=== PATIENT | female | born 1990 | race Caucasian/White ===

== ENCOUNTER 2021-01-28 10:32 | Emergency (ER) | payer BC, MEDICAID, SELFPAY ==
[2021-01-28 10:49] VITALS: BP 147/87; PULSE 99; RESP 16; TEMP 36.9; O2SAT 99
[2021-01-28 11:42] VITALS: BP 102/86; BP 122/81; BP 123/83; PULSE 88; PULSE 93; PULSE 99
[2021-01-28 11:44] LABS: Basophils Absolute Auto 0.1 K/mm3 (0.0-0.1); Basophils Percent Auto 0.5 % (0.2-1.2); Eosinophils Absolute Auto 0.1 K/mm3 (0-0.3); Eosinophils Percent Auto 1.4 % (0-4.4); Hematocrit 37.3 % (37.0-47.0); Hemoglobin 11.8 g/dL (12.0-15.0); Immature Granulocyte Absolute 0.05 K/mm3 (0.00-0.031); Immature Granulocyte Percent A 0.5 % (0-0.5); Lymphocytes Absolute Auto 2.01 K/mm3 (0.9-3.2); Lymphocytes Percent Auto 20.9 % (18.3-44.2); Mean Corpuscular HGB Conc 31.6 g/dl (32-36); Mean Corpuscular Hemoglobin 25.4 pg (26-34); Mean Corpuscular Volume 80.2 fl (80-100); Mean Platelet Volume 9.1 fl (7.4-10.4); Monocytes Absolute Auto 0.4 K/mm3 (0.1-0.6); Neutrophils Percent Auto 72.7 % (45.5-73.1); Platelet Count Result 213 k/mm3 (150-375); Red Blood Count 4.65 M/mm3 (4.2-5.4); Red Cell Distribution Width 14.6 % (11.5-14.5); White Blood Count 9.6 K/mm3 (4.5-10.0)
[2021-01-28 11:49] LABS: Add Urine Microscopic? YES; Appearance Urine Clear (Clear); Bacteria Urine Trace /hpf; Bilirubin Urine Negative (Negative); Blood Urine Negative (Negative); Color Urine Straw (Yellow); Glucose Urine UA Negative (Negative); Ketones Urine Negative (Negative); Leukocyte Esterase Ur Trace LEU/UL (Negative); Mucus Urine Rare /lpf; Nitrate Urine Negative (Negative); Protein Urine Negative (Negative); RBC Urine 0-2 /hpf (0-2); Specific Grav Ur 1.008 (1.001-1.035); Squamous Epithelial Cell Urine Few /hpf (Few); Urobilinogen Urine Negative mg/dL (<2.0); WBC Urine 0-3 /hpf
[2021-01-28 11:56] LABS: Alanine Aminotransferase 9 U/L (4-35); Albumin Level 3.5 g/dL (3.5-5.1); Alkaline Phosphatase 102 U/L (38-126); Anion Gap 7 mmol/L (8-16); Aspartate Amino Transferase 14 U/L (14-36); Bilirubin,Total 0.2 mg/dL (0.2-1.3); Blood Urea Nitrogen 8 mg/dL (7-17); Calcium 9.3 mg/dL (8.4-10.2); Carbon Dioxide 20 mmol/L (22-30); Chloride 106 mmol/L (98-107); Estimated CRCL calculation 127 ml/min; Estimated Glomerular Filt Rate > 60; Glucose 73 mg/dL (65-110); Lipase 101 U/L (23-300); Potassium 4.2 mmol/L (3.4-5.0); Sodium 133 mmol/L (137-145)
[2021-01-28] MEDS: ONDANSETRON INJ 4 MG/2 ML VIAL IV PUSH (13:30)
[2021-01-28] MEDS: SODIUM CHLORIDE 0.9% IV 1,000 ML 999 ML IV CONT (13:30)
--- NOTE | 2021-01-28 13:59 | ED.GENADULT ---
HPI - General Adult General Chief complaint: Dizziness Stated complaint: I think I need fluids - dizzy Time Seen by Provider: 01/28/21 11:59 History of Present Illness HPI narrative: Patient is a 30-year-old female who presents ER with lightheadedness. Reports has been nauseated for several days and has not been eating well. This is causing her to get lightheaded when she goes from sitting to standing. No syncope. No urinary frequency urgency or dysuria. No leakage of fluid or vaginal bleeding. She is feeling her baby move. She is 27 weeks of gestation. She sees Dr. Forman. Related Data Allergies Allergy/AdvReac Type Severity Reaction Status Date / Time No Known Allergies Allergy Verified 01/28/21 11:44 Review of Systems Review of Systems: All systems reviewed & are unremarkable except as noted in HPI and below Constitutional: Constitutional: Denies chills, Reports fatigue and Denies fever(s) ENT: Denies nasal congestion and Denies sore throat Gastrointestinal: Gastrointestinal: Denies abdominal pain, Denies diarrhea, Reports nausea and Denies vomiting Genitourinary: Genitourinary: Denies nocturia, Denies dysuria and Denies flank pain Musculoskeletal: Musculoskeletal: Denies back pain and Denies muscle cramps PMFSH Past Medical History Medical History (Updated 01/28/21 @ 14:53 by Chapo Stacy MD) Healthy female adult Surgical History Surgical History (Updated 01/28/21 @ 14:49 by Chapo Stacy MD) No history of previous surgery Social History Social History (Updated 01/28/21 @ 14:49 by Chapo Stacy MD) Smoking status: Never smoker Gender identity (if verbalized by the patient): Female Exam Narrative: GENERAL: Well-appearing, well-nourished, and in no acute distress. HEAD: Normocephalic, atraumatic. EYES: PERRL and EOMI. ENT: Mucous membranes moist. CHEST: Clear to auscultation. No respiratory distress. HEART: Regular rate and rhythm. Normal peripheral pulses. ABDOMEN: Soft, nontender, nondistended, uterus palpated above the umbilicus. EXTREMITIES: Normal range of motion. No edema. SKIN: Warm, dry, no rash. NEURO: Alert and oriented x3. Course Course Emergency Course: Positive heart tones. Patient given fluids and antiemetics. Discharge home with Nell. Follow-up with her OB. Vital Signs Vital signs: Vital Signs Temperature 98.4 F 01/28/21 10:49 Pulse Rate 99 01/28/21 10:49 Respiratory Rate 16 01/28/21 10:49 Blood Pressure 147/87 H 01/28/21 10:49 Pulse Oximetry 99 01/28/21 10:49 Temperature 98.4 F 01/28/21 10:49 Pulse Rate 68 01/28/21 14:16 Respiratory Rate 18 01/28/21 14:16 Blood Pressure 106/68 01/28/21 14:16 Pulse Oximetry 100 01/28/21 14:16 Medical Decision Making Vital Signs Vital Signs: Vital Signs Temperature 98.4 F 01/28/21 10:49 Pulse Rate 99 01/28/21 10:49 Respiratory Rate 16 01/28/21 10:49 Blood Pressure 147/87 H 01/28/21 10:49 Pulse Oximetry 99 01/28/21 10:49 Temperature 98.4 F 01/28/21 10:49 Pulse Rate 68 01/28/21 14:16 Respiratory Rate 18 01/28/21 14:16 Blood Pressure 106/68 01/28/21 14:16 Pulse Oximetry 100 01/28/21 14:16 Lab Data Result diagrams: 01/28/21 11:38 01/28/21 11:38 Labs: Lab Results 01/28/21 01/28/21 01/28/21 Range/Units 11:38 11:38 11:38 WBC 9.6 (4.5-10.0) K/mm3 RBC 4.65 (4.2-5.4) M/mm3 Hgb 11.8 L (12.0-15.0) g/dL Hct 37.3 (37.0-47.0) % MCV 80.2 (80-100) fl MCH 25.4 L (26-34) pg MCHC 31.6 L (32-36) g/dl RDW 14.6 H (11.5-14.5) % Plt Count 213 (150-375) k/mm3 MPV 9.1 (7.4-10.4) fl Immature Gran % (Auto) 0.5 (0-0.5) % Neut % (Auto) 72.7 (45.5-73.1) % Lymph % (Auto) 20.9 (18.3-44.2) % [place] % (Auto) 4.0 (2.6-8.5) % Eos % (Auto) 1.4 (0-4.4) % Baso % (Auto) 0.5 (0.2-1.2) % Lymph # (Auto) 2.01 (0.9-3.2) K/mm3 [place] # (Auto)
[2021-01-28 14:16] VITALS: BP 106/68; PULSE 68; RESP 18; O2SAT 100
[2021-01-28 15:09] VITALS: BP 105/59; PULSE 68; RESP 18; O2SAT 99
== END 2021-01-28 15:29 | disposition home or self-care (01) ==
PROVIDERS: Emergency Medicine; Emergency Provider Emergency Medicine; PCP Nurse Practitioner Family
DX: O21.9 Vomiting of pregnancy, unspecified (principal); Z3A.27 27 weeks gestation of pregnancy
CPT/HCPCS: 36415; 80053; 81001; 83690; 85025; 96361; 96374; 99284; J2405; J7030

== ENCOUNTER 2021-04-03 20:29 | Observation (INO) | payer BC, MEDICAID, SELFPAY ==
--- NOTE | 2021-04-03 20:29 | OBADM ---
This patient, Nany Leroy, admitted to the OB room Labor/Delivery/Recovery 106 for observation. Patient/family oriented to hospital policies and general routines including ID bracelet, bed and alarms, visiting hours, pain management, procedures, bathroom and other care routines, personal items, smoking policy, room service/diet, and visiting hours. Patient/Family are encouraged to report perceived risks to care and to ask questions if they do not understand what they are told or what they should do.
--- NOTE | 2021-04-06 15:05 | PM.OBTRLD ---
OB - Triage/Final Diagnosis Visit Information Comments/Additional reasons for admission: I have assessed the risk for this patient, Nany Leroy, and determined that she would benefit from observation care. Final Diagnosis (1) Pelvic pain affecting : Code(s): O26.899 - Other specified related conditions, unspecified trimester; R10.2 - Pelvic and perineal pain Status: Acute
== END 2021-04-03 22:09 | disposition home or self-care (01) ==
PROVIDERS: Admitting Provider Obstetrics & Gynecology; PCP Nurse Practitioner Family; Visit Provider Obstetrics & Gynecology
DX: O26.893 Other specified pregnancy related conditions, third trimester (principal); R10.2 Pelvic and perineal pain; Z3A.36 36 weeks gestation of pregnancy
CPT/HCPCS: 84112; G0378; G0379

== ENCOUNTER 2021-04-20 06:01 | Inpatient (IN) | payer MEDICAID, SELFPAY ==
[2021-04-20] VITALS (180 sets, daily range): BP systolic 87–151; BP diastolic 35–99; PULSE 53–145; RESP 18; TEMP 36.3–37.6; O2SAT 86–100; BMI 41.5
--- OUTSIDE RECORDS SUMMARY | 2021-04-20 06:09 | XMS_ITS | Encounter Summary ---
:1990 Author Care Team Providers Name Role Phone Robert Forman DO Research Coordinator [phone] Reason for Visit OB Ultrasound Assessment and Plan None recorded.Discussion Note: None recorded.Patient educational handouts: No information available. Plan of Care Reminders Provider Appointments None ? ? recorded. Lab None ? ? recorded. Referral None ? ? recorded. Procedures None ? ? recorded. Surgeries None ? ? recorded. Imaging None ? ? recorded. Medications Name Start Date ? ? metoclopramide 10 mg tablet ? TAKE 1 TABLET BY MOUTH FOUR TIMES DAILY NEEDED FOR NAUSEA ondansetron 4 mg disintegrating tablet ? sertraline 25 mg tablet ? Take 1 tablet every day by oral route for 14 days. Unisom (doxylamine) 25 mg tablet ? Take 0.5 tablets 4 times a day by oral route. Vitamin B-6 25 mg tablet ? TAKE 1 TABLET BY MOUTH FOUR TIMES DAILY Notes: PNV Medications Administered None recorded. Vitals None recorded. Results Lab Results None recorded. Allergies Code Code System Name Reaction Severity Onset NKDA ? ? ? Problems Name Status Onset Date Source ?
--- OUTSIDE RECORDS SUMMARY | 2021-04-20 06:09 | XMS_ITS ---
:1990 Author Care Team Providers Name Role Phone MONICA CHAIREZ DO Armor Reconnaissance Vehicle Crewman [phone] Allergies Code Code System Name Reaction Severity Status Onset NKDA ? Medications Name Status Start Date Stop Date ? ? aripiprazole 5 mg tablet Completed ? 021 TAKE 1 TABLET BY MOUTH EVERY DAY bupropion HCl SR 200 mg tablet,12 Completed ? 02/13/2021 hr sustained-release bupropion HCl XL 150 mg 24 hr Completed ? tablet, extended release bupropion HCl XL 300 mg 24 hr Completed ? tablet, extended release ciprofloxacin 500 mg tablet Completed ? 07/2020 TAKE 1 TABLET BY MOUTH EVERY 12 HOURS FOR 5 DAYS Iron (ferrous sulfate) 325 mg (65 mg iron) tablet Completed 10/07/2019 09/29/2020 Take 1 tablet 3 times a day by oral route. Lidocaine Viscous 2 % mucosal solution Completed ? 09/29/2020 GARGLE AND SPIT 5 ML PO Q 4 TO 6 H PRF PAIN metoclopramide 10 mg tablet Active ? Not available TAKE 1 TABLET BY MOUTH FOUR TIMES DAILY NEEDED FOR NAUSEA nitrofurantoin monohydrate/macrocrystals 100 mg capsule Complete d ? 09/29/2020 TK ONE C PO Q 12 H FOR 7 DAYS norethindrone acetate 5 mg tablet Completed ? 09/29/2020 TAKE 1 TABLET BY MOUTH DAILY nystatin 100,000 unit/mL oral suspension Completed ? 09/29/2020 SHAKE LQ AND TK 5 ML PO QID FOR 7 DAYS ondansetron 4 mg disintegrating Active ? Not available tablet phentermine 37.5 mg tablet Completed ?
--- OUTSIDE RECORDS SUMMARY | 2021-04-20 06:09 | XMS_ITS | Encounter Summary ---
:1990 Author Care Team Providers Name Role Phone Robert Forman DO Supervisor Of Research [phone] Reason for Visit return OB visit Assessment and Plan 1. Routine care Discussion Note: None recorded.Patient educational handouts: No information [...] Notes: PNV Medications Administered None recorded. Vitals Height Weight BMI Blood Pressure 5 ft 2 in 228 lbs 41.7 kg/m2 118/82 mm[Hg] Results Lab Results None recorded. Allergies Code Code System Name Reaction Severity Onset
--- OUTSIDE RECORDS SUMMARY | 2021-04-20 06:09 | XMS_ITS | Encounter Summary ---
:1990 Author Care Team Providers Name Role Phone Robert Forman DO Submarine Element Coordinator [phone] Reason for Visit OB Ultrasound Assessment and [...]
--- OUTSIDE RECORDS SUMMARY | 2021-04-20 06:09 | XMS_ITS | Encounter Summary ---
:1990 Author Care Team Providers Name Role Phone Robert Forman DO Packaging Operator [phone] Reason for Visit return OB visit Assessment and Plan 1. Routine care 2. Nausea and vomiting ? Vitamin B-6 25 mg tablet 3. Large for gestation age fetus ? US, obstetric, 3rd trimest er Discussion Note: None recorded.Patient educational handouts: No information available. Plan of Care Reminders Provider Appointments None ? ? recorded. Lab None ? ? recorded. Referral None ? ? recorded. Procedures None ? ? recorded. Surgeries None ? ? recorded. Imaging US, [facility] Tr[facility] (Imaging) Medications Name Start Date ? ? metoclopramide [...] Notes: PNV Medications Administered None recorded. Vitals Weight Bl
--- OUTSIDE RECORDS SUMMARY | 2021-04-20 06:09 | XMS_ITS | Encounter Summary ---
:1990 Author Care Team Providers Name Role Phone Robert Forman DO Health Care Attorney [phone] Reason for Visit return OB visit Assessment and Plan 1. Routine care 2. Mixed anxiety and depressive disorder ? sertraline 25 mg tablet ? counseling referral ? sertraline 50 mg tablet Discussion Note: None recorded.Patient educational handouts: No information available. Plan of Care Reminders Provider Appointments None ? ? recorded. Lab None ? ? recorded. Referral Counseling [facility] Referral 02/27/2021 Intensive Outpat ient Program Behavior al Health Procedures None ? ? recorded. Surgeries None [...] MOUTH FOUR TIMES DAILY Notes: PNV Medications Admi
--- OUTSIDE RECORDS SUMMARY | 2021-04-20 06:09 | XMS_ITS | Encounter Summary ---
:1990 Author Care Team Providers Name Role Phone Robert Forman DO Make Up Man [phone] Reason for Visit return OB visit Assessment [...] PNV Medications Administered None recorded. Vitals Weight Blood Pressure 220.6 lbs 112/76 mm[Hg] Results Lab Results None recorded. Allergies Code Code System Name Reaction Severity Onset
--- OUTSIDE RECORDS SUMMARY | 2021-04-20 06:09 | XMS_ITS ---
:1990 Author Care Team Providers Name Role Phone DINAH WILLIS [facility] Primary Care Provider [phone] Allergies Code Code System Name Reaction Severity Status Onset NKDA ? Medications Name Status Start Date Stop Date ? ? aripiprazole 5 mg tablet Active ? Not jose ilable bupropion HCl SR 200 mg tablet,12 hr sustained-release Active ? Not available TAKE 1 TABLET BY MOUTH TWICE DAILY bupropion HCl XL 150 mg 24 hr tablet, extended release Active ? Not available TAKE 1 TABLET BY MOUTH EVERY DAY bupropion HCl XL 300 mg 24 hr tablet, Active ? Not available extended release ciprofloxacin 500 mg tablet Active ? Not available TAKE 1 TABLET BY MOUTH EVERY 12 HOURS FOR 5 DAYS Iron (ferrous sulfate) 325 mg (65 mg iron) tablet Active ? Not available Take 1 tablet 3 times a day by oral route. Lidocaine Viscous 2 % mucosal solution Active ? Not available GARGLE AND SPIT 5 ML PO Q 4 TO 6 H PRF PAIN nitrofurantoin Active ? Not available monohydrate/macrocrystals 100 mg capsule norethindrone acetate 5 mg tablet Active ? Not available take one tab daily nystatin 100,000 unit/mL oral suspension Active ? Not available SHAKE LQ AND TK 5 ML PO QID FOR 7 DAYS phentermine 37.5 mg tablet Active ? Not a vailable Take 1 tablet every day by oral route for 30 days. Rexulti 1 mg tablet Unknown ? Not availabl e Take 1 tablet every day by oral route for 30 days.
--- OUTSIDE RECORDS SUMMARY | 2021-04-20 06:09 | XMS_ITS | Encounter Summary ---
:1990 Author Care Team Providers Name Role Phone Robert Forman DO Bat Person [phone] Reason for Visit return OB visit Assessment and Plan 1. Large for gestation age fetus ? US, obstetric, 3rd trimest er Discussion Note: None recorded.Patient educational handouts: No information available. Plan of Care Reminders Provider Appointments None ? ? recorded. Lab None ? ? recorded. Referral None ? ? recorded. Procedures None ? ? recorded. Surgeries None ? ? recorded. Imaging US, [facility] Trimester (Imaging) Medications Name Start [...] Administered None recorded. Vitals Weight Blood Pressure 224.8 lbs 118/70 mm[Hg] Results Lab Results None recorded
--- OUTSIDE RECORDS SUMMARY | 2021-04-20 06:09 | XMS_ITS | Encounter Summary ---
:1990 Author Care Team Providers Name Role Phone Robert Forman DO Cytology Teacher [phone] Reason for Visit return OB visit ob-nm Assessment and Plan 1. Routine care ? streptococcus group B, cul ture, unspecified specimen Discussion Note: None recorded.Patient educational handouts: No information available. Plan of Care Reminders Provider Appointments None recorded. ? ? Lab Streptococcus Lab nay PSC Group B, Culture, 03/27/2021 Unspecified Specimen Referral None recorded. ? ? Procedures None recorded. ? ? Surgeries None recorded. ? ? Imaging None recorded. ? ? Medications Name Start Date ? ? metoclopramide [...] Medications Administered None recorded. Vitals Height Weight Blood Pressure 5 ft 2 in
[2021-04-20 06:44] LABS: Basophils Absolute Auto 0.1 K/mm3 (0.0-0.1); Basophils Percent Auto 0.7 % (0.2-1.2); Eosinophils Absolute Auto 0.2 K/mm3 (0-0.3); Eosinophils Percent Auto 2.2 % (0-4.4); Hematocrit 37.1 % (37.0-47.0); Hemoglobin 11.6 g/dL (12.0-15.0); Immature Granulocyte Absolute 0.04 K/mm3 (0.00-0.031); Immature Granulocyte Percent A 0.5 % (0-0.5); Lymphocytes Absolute Auto 2.43 K/mm3 (0.9-3.2); Lymphocytes Percent Auto 28.5 % (18.3-44.2); Mean Corpuscular HGB Conc 31.3 g/dl (32-36); Mean Corpuscular Hemoglobin 22.9 pg (26-34); Mean Corpuscular Volume 73.2 fl (80-100); Mean Platelet Volume 9.9 fl (7.4-10.4); Monocytes Absolute Auto 0.4 K/mm3 (0.1-0.6); Monocytes Percent Auto 4.3 % (2.6-8.5); Neutrophils Absolute Auto 5.4 K/mm3 (1.3-6.7); Neutrophils Percent Auto 63.8 % (45.5-73.1); Platelet Count Result 252 k/mm3 (150-375); Red Blood Count 5.07 M/mm3 (4.2-5.4); Red Cell Distribution Width 15.8 % (11.5-14.5); White Blood Count 8.5 K/mm3 (4.5-10.0)
[2021-04-20] MEDS: LACTATED RINGERS 1,000 ML 125 ML IV CONT ×3 (06:53→12:53)
--- NOTE | 2021-04-20 06:54 | PM.IMHP ---
H&P: HPI History of Present Illness Date/Time: 04/20/21 06:45 Nany is a 30yo @ 39.0wks (ROGELIO 04/27/21) who presents for elective induction of labor. She denies contractions, VB or LOF. She reports movement. She has had regular care. Her is complicated by: - Elevated glucola, normal 3 hour OGTT - Mild anemia on iron daily - CMV non-immune - Obesity; BMI 41 - Anxiety on zoloft 25mg daily Chief Complaint: induction of labor Review of Systems Review of Systems: All systems reviewed & are unremarkable except as noted in HPI and below (HPI) [facility] Past Medical History Medical History Healthy female adult Surgical History Surgical History No history of previous surgery Family History Family History Father Diabetes mellitus Social History Social History Smoking status: Never smoker Substance use: never Gender identity (if verbalized by the patient): Female Spiritual care concerns: No Meds Home Medications and Allergies Home Medications Medication Instructions Recorded Confirmed Type ondansetron 4 mg PO Q6H PRN #6 tablet 01/28/21 Rx Unisom (doxylamine) 25 mg PO HS PRN 03/28/21 03/28/21 History prenat.vits,liiva,qts-xuyz-lchjn 1 tablet PO DAILY 03/28/21 03/28/21 History pyridoxine (vitamin B6) 25 mg PO DAILY 03/28/21 03/28/21 History sertraline [Zoloft] 25 mg PO DAILY 03/28/21 03/28/21 History Allergies Allergy/AdvReac Type Severity Reaction Status Date / Time No Known Allergies Allergy Verified 03/28/21 13:32 Vital Signs Vital Signs - 24 hr 04/20/21 06:41 Pulse Rate 91 Blood Pressure 101/68 Exam Const: General: cooperative, comfortable and no acute distress Nutritional Appearance: obese Resp: Effort & Inspection: normal respiratory effort Cardio: Rate: regular rate GI: Inspection: non-distended GI Palp: No abdominal tenderness and Yes Soft to palpation : Other: FHT's: 120/mod griselda/ no accels/ no decels - cat 1 TOCO: irregular ctx's Cervix: 3.5/50/-3 Membranes: intact Presentation: cephalic Skin: General skin exam: normal color Neuro: General: patient oriented x3 Extrem: General: normal to inspection Psych: Appearance: grossly normal Affect: normal affect Attitude: cooperative Assessment and Plan Assessment and plan (1) : Qualifiers: Weeks of gestation: 39 weeks Qualified Code(s): Z3A.39 - 39 weeks gestation of Code(s): Z34.90 - Encounter for supervision of normal , unspecified, unspecified trimester Status: Acute (2) Encounter for elective induction of labor: Code(s): Z34.90 - Encounter for supervision of normal , unspecified, unspecified trimester Status: Acute Additional Plan - Admit to L&D for induction of labor - Pitocin per protocol - Continuous monitoring - Plan for AROM when darby adequately - Anesthesia consult PRN pain - GBS negative
--- NOTE | 2021-04-20 06:54 | WPDHPUPDATE1 ---
History and Physical Update Update Date/Time: 04/20/21 06:54 History and Physical has been reviewed, including an updated exam of the patient. There are NO changes in the patient's condition. Risks, benefits, and alternatives have been discussed and questions answered. Patient agrees to proceed with procedure.
--- NOTE | 2021-04-20 07:00 | LDADM ---
This patient, Nany Leroy, was admitted to Labor/Delivery/Recovery 108 on 04/20/21 at 06:01. Plans for labor, pain management and were discussed with patient. Patient/family oriented to hospital policies and general routines including ID bracelet, bed and alarms, visiting hours, pain management, procedures, bathroom and other care routines, personal items, smoking policy, room service/diet and guest tray routines, security routines, and visiting hours. Patient/Family are encouraged to report perceived risks to care and to ask questions if they do not understand what they are told or what they should do. See OBIX for further documentation.
[2021-04-20] MEDS: OXYTOCIN 30 UNITS/NS 500 ML 30 UNITS/500 ML BAG IV CONT (07:01)
--- NOTE | 2021-04-20 09:18 | WPDANESEPP ---
Anes - Eval Pre Procedure Procedure: labor epidural Date/Time: 04/20/21 09:18 Pre Op Diagnosis: IOL Patient Data Age: 30 Gender: F Height: 1.57 m Weight: 103 kg Last Vital Signs Temp 37.1 C 04/20/21 09:00 Pulse 74 04/20/21 09:00 BP 121/99 H 04/20/21 09:00 Allergies Allergy/AdvReac Type Severity Reaction Status Date / Time No Known Allergies Allergy Verified 03/28/21 13:32 Home Medications Medication Instructions Recorded Confirmed Type Unisom (doxylamine) 25 mg PO HS PRN 03/28/21 04/20/21 History prenat.vits,livia,oix-nkkd-uonko 1 tablet PO DAILY 03/28/21 04/20/21 History pyridoxine (vitamin B6) 25 mg PO DAILY 03/28/21 04/20/21 History sertraline [Zoloft] 25 mg PO HS 03/28/21 04/20/21 History Laboratory Tests 04/20/21 04/20/21 04/20/21 06:36 06:36 06:36 WBC 8.5 K/mm3 K/mm3 (4.5-10.0) RBC 5.07 M/mm3 M/mm3 (4.2-5.4) Hgb 11.6 g/dL L g/dL (12.0-15.0) Hct 37.1 % % (37.0-47.0) MCV 73.2 fl L fl (80-100) MCH 22.9 pg L pg (26-34) MCHC 31.3 g/dl L g/dl (32-36) RDW 15.8 % H % (11.5-14.5) Plt Count 252 k/mm3 k/mm3 (150-375) MPV 9.9 fl fl (7.4-10.4) Immature Gran % (Auto) 0.5 % % (0-0.5) Neut % (Auto) 63.8 % % (45.5-73.1) Lymph % (Auto) 28.5 % % (18.3-44.2) [place] % (Auto) 4.3 % % (2.6-8.5) Eos % (Auto) 2.2 % % (0-4.4) Baso % (Auto) 0.7 % % (0.2-1.2) Lymph # (Auto) 2.43 K/mm3 K/mm3 (0.9-3.2) [place] # (Auto) 0.4 K/mm3 K/mm3 (0.1-0.6) Eos # (Auto) 0.2 K/mm3 K/mm3 (0-0.3) Baso # (Auto) 0.1 K/mm3 K/mm3 (0.0-0.1) Abs Immat Gran (auto) 0.04 K/mm3 H K/mm3 (0.00-0.031) Absolute Neuts (auto) 5.4 K/mm3 K/mm3 (1.3-6.7) Absolute Nucleated RBC 0.0 K/mm3 K/mm3 (0.0-0.012) Nucleated RBC % 0.0 % % (0.0-0.2) RPR Pending Blood Type B Positive Antibody Screen Negative Patient hx anesthesia problems: none Family hx anesthesia problems: none Results Review: All pre-operative results and documents have been reviewed as part of the pre-operative evaluation. [facility] Past Medical History Medical History Healthy female adult Surgical History Surgical History No history of previous surgery Family History Family History Father Diabetes mellitus Social History Social History Smoking status: Never smoker Second hand tobacco smoke exposure: No Substance use: never Gender identity (if verbalized by the patient): Female Spiritual care concerns: No Exam Day of Procedure 04/20/21 09:18 Patient weight: morbidly obese Heart: regular rate and rhythm Lungs: clear to auscultation Airway: Mallampati scale Neurological: alert and oriented
[2021-04-20] MEDS: ONDANSETRON INJ 4 MG/2 ML VIAL IV PUSH (09:19)
--- NOTE | 2021-04-20 13:50 | PM.OBPNLAB ---
Pain Control Date/time seen: 04/20/21 13:50 Pain control: epidural Pelvic Exam Dilation (cm): 4 (.5) Effacement (%): 50 station: -2 Amniotic membrane status: Ruptured (AROM, clear 1345) Contractions Monitor mode: External Contraction frequency: 2 (-3) Contraction pattern: Regular Status status: Category l Assessment and Plan Pitocin rate (mU/min): 12 Assessment: induction ongoing Plan: continuous present management
--- NOTE | 2021-04-20 18:47 | PM.OBPRVD ---
OB - Delivery Note Procedure Delivery date: 04/20/21 events: Labor Induction Intrapartal events: None Induction method: per pitocin protocol Delivery augmentation: rupture of membranes Delivery monitor: external FHT and external uterine Route of delivery: Laceration Description: None Specimen: Yes Quantitative Blood Loss (ml): 350 Anesthesia type: Epidural Disposition: floor [place] Baby Date of : 04/20/21 Time of : 18:28 Weeks of gestation at delivery: 39 Infant gender: Female Weight (pounds): 9 Weight (ounces): 3 presentation: vertex position: Right Occiput Anterior Placenta delivery description: Expressed cord vessel description: 3 Vessels and Delayed Cord Clamping score one minute: 9 score five minutes: 9 Narrative: [place] progressed to complete dilation with desire to push. She pushed with good maternal effort and delivered the head over intact perineum. She easily delivered the shoulders and body without complications. The infant had spontaneous cry was immediately placed skin to skin. The mouth and nose were bulb suction. Delayed cord clamping was performed. The umbilical cord was then clamped and cut. A segment of cord was collected for cord gases. The remaining cord blood was collected for typing. With Pitocin running and gentle downward traction on the cord, the placenta delivered without complications. A bimanual massage was performed with uterine sweep and membranes were palpated and removed. Minimal bleeding with good fundal tone was noted. The cervix, vagina, perineum was inspected and no lacerations were noted. Minimal bleeding continued with good fundal tone. Sponge, lap, instrument, and needle counts were correct at the end of the procedure. Mom and baby were left bonding in the birthing suite in stable condition.
[2021-04-20] MEDS: OXYTOCIN 30 UNITS/NS 500 ML 30 UNITS/500 ML BAG 125 UNITS IV CONT (19:02)
--- NOTE | 2021-04-20 21:38 | OBPPTRN ---
Patient transferred to post room #286 via wheelchair. Support person present. Oriented to unit, room, information board, rooming in, admission packet and security measures. Patient verbalizes understanding.
[2021-04-20] MEDS: IBUPROFEN 600 MG TABLET PO (22:24)
[2021-04-21] MEDS: SERTRALINE HCL 25 MG TABLET PO (00:27)
[2021-04-21 00:30] VITALS: BP 108/43; PULSE 64; RESP 18; TEMP 35.9; O2SAT 97
[2021-04-21 04:00] VITALS: BP 96/50; PULSE 66; RESP 18; TEMP 36.3; O2SAT 98
[2021-04-21 05:43] LABS: Hematocrit 30.6 % (37.0-47.0); Hemoglobin 9.4 g/dL (12.0-15.0)
[2021-04-21 08:00] VITALS: BP 132/79; PULSE 69; RESP 18; TEMP 36.6; O2SAT 100
[2021-04-21] MEDS: POLYSACCHARIDE IRON COMPLEX 150 MG CAPSULE PO ×2 (08:01→16:02)
[2021-04-21] MEDS: IBUPROFEN 600 MG TABLET PO ×2 (08:01→16:02)
[2021-04-21] MEDS: DOCUSATE SODIUM 100 MG CAPSULE PO ×2 (08:01→16:02)
--- NOTE | 2021-04-21 10:54 | P.PNOB_ITS ---
OB - PN: Subj Subjective Date/time seen: 04/21/21 10:54 PPD#1 Nany reports doing well today. She reports her pain is well controlled. Her bleeding is much printing roller polisher today. She has tolerated regular diet. She has voided, passed gas, and ambulated. She is bottle feeding. She denies CP, SOB, vision changes, N/V, dizziness, palpitations, or GUERIN . OB - PN: Obj Data Labs CBC & Chem 7: 04/21/21 03:30 Labs: Laboratory Results - last 24 hr 04/21/21 03:30 Hgb 9.4 L Hct 30.6 L OB - PN A/P Assessment and Plan (1) Normal vaginal delivery of third : Code(s): O80 - Encounter for full-term uncomplicated delivery Status: Acute (2) Depression: Qualifiers: Depression Type: depression Qualified Code(s): O99.345 - Other mental disorders complicating the puerperium; F53.0 - depression Code(s): F32.A - Depression, unspecified Status: Acute Plan day: 1 Plan: routine care and discharge home Comments: - f/u in 2 wks - will increase zoloft to 50mg; will monitor symptoms - ER return precautions: fever, bleeding, n/v/abd pain, HTN - Pelvic rest/takes meds as prescribe Time Spent With Patient Time: Total time spent is greater than 50% in coordination of care (as documented) at patient's floor/unit and/or counseling patient: Review of Systems Review of Systems: All systems reviewed & are unremarkable except as noted in HPI and below (HPI) Exam Const: General: cooperative, comfortable and no acute distress Nutritional Appearance: obese Resp: Effort & Inspection: normal respiratory effort Auscultation: clear to auscultation bilaterally Cardio: Rate: regular rate GI: Inspection: normal to inspection and non-distended GI Palp: No abdominal tenderness and Yes Soft to palpation Auscultation: normal bowel sounds : Other: Fundus firm Skin: General skin exam: normal color Neuro: General: patient oriented x3 Extrem: General: normal to inspection Psych: Appearance: grossly normal Affect: normal affect Attitude: cooperative
[2021-04-21 12:04] VITALS: BP 112/59; PULSE 58; RESP 18; TEMP 37.2; O2SAT 100
--- NOTE | 2021-04-21 15:11 | WPDANLDPN2 ---
Anes-Prog Note L&D Date/Time: 04/21/21 15:11 Comfortable throughout: labor and delivery Neuraxial method: epidural Epidural/Spinal procedure site: clean & non-tender Neuro status: Neuro function grossly intact. Cardiovascular status: normal Respiratory status: normal Airway patency: baseline Mental status: baseline Post-Op hydration status: normal Vital Signs: Last Vital Signs Temp 37.2 C 04/21/21 12:04 Pulse 58 L 04/21/21 12:04 Resp 18 04/21/21 12:04 BP 112/59 L 04/21/21 12:04 Pulse Ox 100 04/21/21 12:04 Pain score (VAS): 0 I/O: Intake & Output 04/20/21 04/21/21 04/21/21 23:59 07:59 15:59 Intake Total 1000 340 Output Total 50 Balance 950 340 Post-procedural complaints: none Patient feedback: Patient satisfied with anesthetic care.
[2021-04-21 16:00] VITALS: BP 125/75; PULSE 65; RESP 16; TEMP 36.7
[2021-04-21 19:00] VITALS: BP 127/77; PULSE 73; RESP 16; TEMP 37; O2SAT 100
[2021-04-23 06:23] LABS: Rapid Plasma Reagin Non-Reactive (NonReactive)
[2021-04-23 08:04] VITALS: BP 127/71; PULSE 68; RESP 20; TEMP 37.4; O2SAT 99
--- NOTE | 2021-04-25 07:44 | PM.OBDSVD ---
DS: Admitting Diagnosis Discharge Date 04/21/21 Admitting Diagnosis induction of labor DS: Discharge Diagnosis Discharge Diagnosis (1) Normal vaginal delivery of third : Code(s): O80 - Encounter for full-term uncomplicated delivery Status: Acute OB - DS: Summary OB Procedures : Ultrasound OB Procedures Intrapartum: Spontaneous Vag Delivery OB Procedures: : None Peripartum Data Delivery Method: Natural Vaginal Laceration Description: None complications: none 1: Gender: Female Disposition of : home Status at Discharge Functional status at discharge: independent ambulation Overall status at discharge: patient is back to baseline Time Spent with Patient Time attestation: Total time spent providing and/or coordinating discharge services: Time spent: Less than 30 minutes Exam Const: General: cooperative, comfortable and no acute distress Nutritional Appearance: obese Resp: Effort & Inspection: normal respiratory effort Auscultation: clear to auscultation bilaterally Cardio: Rate: regular rate GI: Inspection: normal to inspection and non-distended GI Palp: No abdominal tenderness and Yes Soft to palpation Auscultation: normal bowel sounds : Other: fundus firm Skin: General skin exam: normal color Neuro: General: patient oriented x3 Extrem: General: normal to inspection Psych: Appearance: grossly normal Attitude: cooperative DS: Data Data Completed and Pending Pending studies at discharge: Pending at discharge 04/20/21 19:28 Surgical [PTH] Routine Discharge Plan Discharge Attending physician on discharge: Peggy Day Discharging Clinician: Peggy Day Anticipated Discharge Date/Time: 04/21/21 20:00 Patient Disposition: Home, Self-Care Activity: pelvic rest Diet: regular Discharge Instructions: Education: Mom and Baby Guide Given to: Mother Follow-Up: Call your delivering provider's office for an appointment to be seen in: 2 Weeks Mom and baby should come to the [facility] for the follow-up appointment. Appointment Date/Time: April 23, 2021 at 8:00 am What to expect at your follow-up visit: Blood Pressure Check Physical Assessment Call [phone] if you are unable to keep your appointment time. BREAST CARE: * Wear a snug supportive bra. * For engorgement discomfort: Bottle Feeding: * May apply ice packs EPISIOTOMY/PERINEAL CARE: * Until bleeding stops, use your esteal bottle after urinating * Change your pad frequently throughout the day * You may take sitz baths several times a day (fill your bathtub with warm water and soak for 20 minutes.) Do NOT bathe in the water * No tub baths until seen by your physician - You may shower ACTIVITY: * Rest as much as possible. * Do not exercise or lift anything heavier than your baby (such as laundry or other children.) * Avoid stairs or driving as much as possible. * Do not put anything into the vagina. No douching, tampons, or sexual activity until seen by physician. NOTIFY PHYSICIAN IF YOU HAVE ANY QUESTIONS OR IF ANY OF THE FOLLOWING SYMPTOMS OCCUR: * If your episiotomy or incision becomes red, swollen, or more painful than what you have experienced in the hospital. * If your vaginal bleeding becomes foul smelling. * If your vaginal bleeding becomes more heavy than a period or if your bleeding changes from pink to bright red. However, you may pass an occasional walnut-sized clot once or twice for the first week . * If you experience a sharp, shooting pain in you calves. * If you discover a hard, reddened area on your breast or if you experience flu-like symptoms. DIET: * Eat regular, well-balanced meals. * Drink plenty of fluids daily. Stand Alone Forms: General Discharge Information Follow-up/Referrals: Peggy Day MD [Physician] - 2 Weeks Discharge Medications: New
== END 2021-04-21 19:45 | disposition home or self-care (01) | DRG 560 ==
LOC: ANHLDR 06:36 → ANHOB2 21:57
PROVIDERS: Admitting Provider Obstetrics & Gynecology; PCP Nurse Practitioner Family; Visit Provider Obstetrics & Gynecology
DX: O99.02 Anemia complicating childbirth (principal); D64.9 Anemia, unspecified; O99.344 Other mental disorders complicating childbirth; F41.9 Anxiety disorder, unspecified; O99.214 Obesity complicating childbirth; E66.9 Obesity, unspecified; O76 Abnormality in fetal heart rate and rhythm complicating labor and delivery; Z3A.39 39 weeks gestation of pregnancy; Z37.0 Single live birth
CPT/HCPCS: 36415; 84112; 85014; 85018; 85025; 86592; 86850; 86900; 86901; 88307; A9270; J2405; J2590; J2795; J7120